=== PATIENT | male | born 1985 | race Caucasian/White ===

== ENCOUNTER 2024-12-31 11:34 | Day surgery (SDC) | payer OTHER ==
--- OUTSIDE RECORDS SUMMARY | 2024-12-31 11:51 | XMS REPORT | Continuity of Care Document ---
Author Name Unknown Address [address] [place] [address] [facility] thconnect Address [address] [place] [address] Care Team Providers Care Aeronautical Project Engineer Name Role Phone SHAYNA STONE Attending Clinician Unavailable Shade Coffman Attending Clinician Unavailable Blanco Jara Attending Clinician Unavailable Blanco Jara Admitting Clinician Unavailable Physician, No Primary or Family Admitting Clinic laura Unavailable Payers Payer Name Policy Type Policy Number Effective Date Expirati on Date Source [facility] M[facility]ALES [id number] 2021 00:00:00 Allergies, Adverse Reactions, Alerts Allergy Name Allergy Type Status Severity Reaction(s) Onset Date Inactive Date Treating Clinician Comments Source No Known Allergie s DA Active U 06-16 00:00: 00 [facility] No Known Allergie s DA Active U 06-16 00:00: 00 [facility] No Known Allergie s DA Active U 02-03 00:00: 00 [facility] No Known Allergie s DA Active U 02-03 00:00: 00 [facility] Procedures Procedure Date / Time Performed Performing Clinicia n Source [id number] 2021-06-19 00:00:00 [facility] [place] [id number] 2021-06-19 00:00:00 [facility] [place] [id number] 2020-02-11 00:00:00 MANRA.07 [facility] Encounters Start Date/Time End Date/Time Encounter Type Admission Type Attending Clinicians Care Facility Care Department Encounter ID Source 2022-04-04 01:04:00 Outpatient SHAYNA STONE [facility] [id number] [facility] 2020-12-05 08:00:00 Inpatient Shade Coffman [facility] [id number] [facility] 2020-02-11 08:00:00 Inpatient Shade Coffman [facility] [id number] [facility] 2021-06-19 11:32:00 2021-06-20 17:02:00 Inpatient Blanco Kaplan [facility].01 [id number] [facility] 2021-06-16 17:17:00 2021-06-16 17:17:00 Outpatient Shade Coffman [facility] [id number] 23 [facility] 2020-02-04 15:12:00 2020-02-04 15:12:00 Outpatient Shade Coffman [facility] [id number] 25 [facility] are [facility] Results Test Description Test Time Test Comments Results Result Co mments Source CBC W/AUTO [id number] 06:15:00* Test Item Value Reference Range Interpretation Comme nts WHITE BLOOD CELL (test code = WBC) 11.7 K/mm3 3.5-11.0 H RED BLOOD CELL (test code = RBC) 4.28 M/mm3 4.70-6.10 L HEMOGLOBIN (test code = HGB) 13.0 G/DL 12.3-15.9 N HEMATOCRIT (test code = HCT) 39.1 % 35.8-46.7 N MEAN CELL VOLUME (test code = MCV) 91.4 Fl 86.3-98.9 N MEAN CELL HGB (test code = MCH) 30.4 pg 28.9-34.4 N MEAN CELL HGB CONCETRATION (test code = MCHC) 33.2 G/DL 32.1-34.5 N RED CELL DISTRIBUTION WIDTH (test code = RDW) 13.9 SD 11.5-14.5 N PLATELET COUNT (test code = PLT) 228 K/mm3 150-450 N MEAN PLATELET VOLUME (test c ode = MPV) 9.70 fL 7.0-9.6 H NEUTROPHIL % (test code = NT%) 71.7 % 40-76 N IMMATURE GRANULOCYTE % (test code = IG%) 0.6 % 0.0-5.0 N LYMPHOCYTE % (test code = LY%) 18.9 % 20.5-51.1 L MONOCYTE % (test code = MO%) 8.2 % 1.7-9.3 N EOSINOPHIL % (test code = EO%) 0.3 % 0.0-6.0 N BASOPHIL % (test code = BA%) 0.3 % 0.0-2.0 N NUCLEATED RBC % (test code = NRBC%) 0.0 /100WBC% 0.0-1.0 N NEUTROPHIL # (test code = NT#) 8.4 K/mm3 1.8-7.6 H IMMATURE GRANULOCYTE # (test code = IG#) 0.07 x10 3/uL 0.00-0.03 H LYMPHOCYTE # (test code = LY#) 2.2 K/mm3 0.6-3.0 N MONOCYTE # (test code = MO#) 1.0 K/mm3 0.2-1.5 N EOSINOPHIL # (test code = EO#) 0.0 K/mm3 0.0-0.4 N BASOPHIL # (test code = BA#) 0.0 K/mm3 0.0-0.2 N NUCLEATED RBC # (test code = NRBC#) 0.0 K/mm3 0.00-0.01 N MANUAL DIFF REQUIRED (test c ode = MDIFF) NO DIFF/SCN CRITERIA - XR KNEE 1 OR 2 V [id number] 12:26:00 [facility] 1985 Sex: M Name:RAN ENGLISH JR [facility] : 1985 Age/S: 36 / M [address] Unit #: [id number] Loc: [place] [id number] Phys: Shade Coffman MD Acct: [id number] Dis Date: Status: ADM IN PHONE #: [phone] Exam Date: 06/19/20211700 FAX #: Reason: postop EXAMS: CPT: [id number] XR KNEE 1 [place] 2V [place] [address] Fluoro Time: DAP (Gy m2): Air Kerma (mGy): Intraoperative fluoroscopic assistance was provided for LEFT KNEE HARDWARE REMOVAL. Radiologic interpretation not rendered. Total of 0.9 secondsfluoroscopy time utilized, 0.1 mGy. LOCATION: S17 at 1226 Reported and signed by: Kenrick Mauricio M.D. CC: Shade Coffman MD PAGE1 Signed Report Name: RAN ENGLISH JR [facility] : 1985 Age/S: 36 / M [id number] [place] [address] Unit #: [id number] Loc: [place] [address] Phys: Shade Coffman MD Acct: [id number] Dis Date: Status: ADM IN PHONE #: [phone] Exam Date: 06/19/2021 170 FAX #: Reason: postop EXAMS: CPT: [id number] XR KNEE 1 OR 2 [place] [address] Fluoro Time: DAP (Gy m2): Air Kerma (mGy): <Continued> Technologist: RT Adore(R)(CT) Trnscb Date/Time: 06/19/2021 (1226) [email or web address] Orig Print D/T: S: 06/19/2021 (8796) PAGE 2 Signed Report- XR FLUOROSCOPY 0-60 MIN 2021-06-19 12:26:00 [facility] : 1985 Sex: M Name: RAN ENGLISH JR [facility] : 1985 Age/S: 36 / M [address] Unit #: [id number] Loc: [place] [address] Phys: Shade Coffman MD Acct: [id number] Dis Date: Status: ADM IN PHONE #: [phone] Exam Date: 06/19/2021 1040 FAX #: Reason: HARDWARE REMOVAL EXAMS: CPT: [id number] XR FLUOROSCOPY 0-60 MIN 62893 Fluoro Time: 1 SEC DAP (Gy m2): Air Kerma (mGy): Intraoperative fluoroscopic assistance was provided for LEFT KNEE HARDWARE REMOVAL. Radiologic interpretation not rendered. Total of 0.9 seconds fluoroscopy time utilized, 0.1 mGy. LOCATION: S17 at 1226 Reported and signed by: Kenrick Mauricio M.D. CC: Luis Coffman MD PAGE 1 Signed Report Name: RAN ENGLISH JR [facility] : 1985 Age/S: 36 / M [address] Unit #: [id number] Loc: [place] [address] Phys: Shade Coffman MD Acct: [id number] Dis Date: Status: ADM IN PHONE #: [phone] Exam Date: 06/19/2021 1040 FAX #: Reason: HARDWARE REMOVAL EXAMS: CPT: [id number] XR FLUOROSCOPY 0-60 MIN 07337 Fluoro Time: 1 SEC DAP (Gy m2): Air Kerma (mGy): <Continued> Technologist: Aileen Villasenor, RT(R) Trnscb Date/Time: 06/19/2021 (8491) [email or web address] Orig Print D/T: S: 06/19/2021 (7495) PAGE 2 Signed ReportSED RATE [id number] 10:48:00* Test Item Value Reference Range Interpretation Comme nts SED RATE ERGREN (test co de = SEDW) 4 mm/hr 0-15 N SED [id number] 10:48:00* Test Item Value Reference Range Interpretation Comme nts SED RATE (test code = SEDW) 4 mm/hr 0-15 CBC W/AUTO [id number] 19:58:00* Test Item Value Reference Range Interpretation Comme nts WHITE BLOOD CELL (test code = WBC) 10.2 K/mm3 3.5-11.0 N RED BLOOD CELL (test code = RBC) 5.67 M/mm3 4.70-6.10 N HEMOGLOBIN (test code = HGB) 17.0 G/DL 12.3-15.9 H HEMATOCRIT (test code = HCT) 51.9 % 35.8-46.7 H MEAN CELL VOLUME (test code = MCV) 91.5 Fl 86.3-98.9 N MEAN CELL HGB (test code = MCH) 30.0 pg 28.9-34.4 N MEAN CELL HGB CONCETRATION (test code = MCHC) 32.8 G/DL 32.1-34.5 N RED CELL DISTRIBUTION WIDTH (test code = RDW) 14.1 SD 11.5-14.5 N PLATELET COUNT (test code = PLT) 299 K/mm3 150-450 N MEAN PLATELET VOLUME (test c ode = MPV) 9.60 fL 7.0-9.6 N NEUTROPHIL % (test code = NT%) 62.0 % 40-76 N IMMATURE GRANULOCYTE % (test code = IG%) 0.6 % 0.0-5.0 N LYMPHOCYTE % (test code = LY%) 26.9 % 20.5-51.1 N MONOCYTE % (test code = MO%) 7.6 % 1.7-9.3 N EOSINOPHIL % (test code = EO%) 1.9 % 0.0-6.0 N BASOPHIL % (test code = BA%) 1.0 % 0.0-2.0 N NUCLEATED RBC % (test code = NRBC%) 0.0 /100WBC% 0.0-1.0 N NEUTROPHIL # (test code = NT#) 6.4 K/mm3 1.8-7.6 N IMMATURE GRANULOCYTE # (test code = IG#) 0.06 x10 3/uL 0.00-0.03 H LYMPHOCYTE # (test code = LY#) 2.8 K/mm3 0.6-3.0 N MONOCYTE # (test code = MO#) 0.8 K/mm3 0.2-1.5 N EOSINOPHIL # (test code = EO#) 0.2 K/mm3 0.0-0.4 N BASOPHIL # (test code = BA#) 0.1 K/mm3 0.0-0.2 N NUCLEATED RBC # (test code = NRBC#) 0.0 K/mm3 0.00-0.01 N MANUAL DIFF REQUIRED (test c ode = MDIFF) NO DIFF/SCN CRITERIA SED [id number] 19:58:00* Test Item Value Reference Range Interpretation Comme nts SED RATE (test code = SEDW) 8 mm/hr 0-15 SED RATE [id number] 19:57:00* Test Item Value Reference Range Interpretation Comme nts SED RATE [facility] (test co de = SEDW) 8 mm/hr 0-15 N COVID 19 INHOUSE [id number] 18:28:00* Test Item Value Reference Range Interpretation Comme nts COVID 19 INHOUSE AG (test code = [id number]) NEGATIVE Negative Per stage settings painter , negative results should be treated aspresumptive and, if inconsistent with clinical signs andsymptoms or necessary for patient management, should betested with an alternative molecular assay. Negative resultsdo not preclude SARS-CoV-2 infection and should not be usedas the sole basis for patient management decisions. Negative results should be considered in the context of apatient's recent exposures, history, presence of clinicalsigns and symptoms consistent with COVID-19. BASIC METABOLIC [id number] 17:35:00* Test Item Value Reference Range Interpretation Comme nts SODIUM (test code = NA) 137 mmol/L 134-147 N POTASSIUM (test code = K) 3.8 mmol/L 3.4-5.0 N CHLORIDE (test code = CL) 104 mmol/L 100-108 N CARBON DIOXIDE (test code = CO2) 29 mmol/L 21-32 N ANION GAP (test code = GAP) 4.0 GAP calc 4.0-15.0 N GLUCOSE (test code = GLU) 88 MG/DL 70-110 N BLOOD UREA NITROGEN (test code = BUN) 15 MG/DL 7-18 N GLOMERULAR FILTRATION RATE (test code = GFR) >=60 max estimate estGFR >60 CREATININE (test code = CREAT) 0.8 MG/DL 0.8-1.3 N CALCIUM (test code = CA) 9.2 MG/DL 8.5-10.1 N C REACTIVE [id number] 17:35:00* Test Item Value Reference Range Interpretation Comme [facility] C REACTIVE PROTEIN (test cod e = CRP) 1.910 MG/DL 0.000-0.3 H PROTHROMBIN [id number] 17:26:00* Test Item Value Reference [facility] (test code = PTP) 11.3 SECONDS 9.3-12.9 N INTERNATIONAL NORMAL RATIO (test code = INR) 1.01 INR Unit 0.8-1.2 N TARGET INR BY INDICATION Indication INR1. Prophylaxis of venous thrombosis 2.0 - 3.0 (orthopedic surgery), Prophylaxis of venous thrombosis (other than high-risk surgery), Treatment of Deep Vein Thrombosis/Pulmonary Embolism, Prevention of systemic embolism - Tissue heart valves, Acute Myocardial Infarction (to prevent systemic embolism), Valvular heart disease, Acute Myocardial Infarction (to prevent systemic embolism), Valvular heart disease, Atrial Fibrillation, Bileaflet mechanical valve in aortic position.2. Mechanical prosthetic valves (high risk), 2.5 - 3.5 Presence of Lupus Anticoagulant or Antiphospholipid Antibodies, Prevention of systemic embolism - Acute Myocardial Infarction (to prevent recurrent infarct). THROMBOPLASTIN TIME [id number] 17:26:00* Test Item Value Reference Range Interpretation Comme [facility] THROMBOPLASTIN TIME PARTIAL (test code = PTT) 41.5 SECONDS 26-35 H CBC W/AUTO [id number] 17:22:00* Test Item Value Reference Range Interpretation Comme nts WHITE BLOOD CELL (test code = WBC) 10.2 K/mm3 3.5-11.0 N RED BLOOD CELL (test code = RBC) 5.67 M/mm3 4.70-6.10 N HEMOGLOBIN (test code = HGB) 17.0 G/DL 12.3-15.9 H HEMATOCRIT (test code = HCT) 51.9 % 35.8-46.7 H MEAN CELL VOLUME (test code = MCV) 91.5 Fl 86.3-98.9 N MEAN CELL HGB (test code = MCH) 30.0 pg 28.9-34.4 N MEAN CELL HGB CONCETRATION (test code = MCHC) 32.8 G/DL 32.1-34.5 N RED CELL DISTRIBUTION WIDTH (test code = RDW) 14.1 SD 11.5-14.5 N PLATELET COUNT (test code = PLT) 299 K/mm3 150-450 N MEAN PLATELET VOLUME (test c ode = MPV) 9.60 fL 7.0-9.6 N NEUTROPHIL % (test code = NT%) 62.0 % 40-76 N IMMATURE GRANULOCYTE % (test code = IG%) 0.6 % 0.0-5.0 N LYMPHOCYTE % (test code = LY%) 26.9 % 20.5-51.1 N MONOCYTE % (test code = MO%) 7.6 % 1.7-9.3 N EOSINOPHIL % (test code = EO%) 1.9 % 0.0-6.0 N BASOPHIL % (test code = BA%) 1.0 % 0.0-2.0 N NUCLEATED RBC % (test code = NRBC%) 0.0 /100WBC% 0.0-1.0 N NEUTROPHIL # (test code = NT#) 6.4 K/mm3 1.8-7.6 N IMMATURE GRANULOCYTE # (test code = IG#) 0.06 x10 3/uL 0.00-0.03 H LYMPHOCYTE # (test code = LY#) 2.8 K/mm3 0.6-3.0 N MONOCYTE # (test code = MO#) 0.8 K/mm3 0.2-1.5 N EOSINOPHIL # (test code = EO#) 0.2 K/mm3 0.0-0.4 N BASOPHIL # (test code = BA#) 0.1 K/mm3 0.0-0.2 N NUCLEATED RBC # (test code = NRBC#) 0.0 K/mm3 0.00-0.01 N MANUAL DIFF REQUIRED (test c ode = MDIFF) NO DIFF/SCN CRITERIA SED [id number] 17:22:00* Test Item Value Reference Range Interpretation Comme nts SED RATE (test code = SEDW) mm/hr 0-15 - XR CHEST 1 [id number] 16:53:00 [facility] 1985 Sex: M Name:RAN ENGLISH JR [facility] : 1985 Age/S: 36 / M [address] Unit #: [id number] Loc: [place] [address] Phys: Jackie Wilks MD Acct: [id number] Dis Date: Status: PRE [facility] PHONE #: [phone] Exam Date: 06/16/2021 1642 FAX #: Reason: PREOP EXAMS: CPT: [id number] XR CHEST 1 V 20325 Fluoro Time: DAP (Gy m2): Air Kerma (mGy): EXAM: Portable chest x-ray, one view INDICATION: PREOP A DMITTING DIAGNOSIS: Fracture left distal femur, left knee osteoarthritis LOCATION CODE: C3 COMPARISON: None TECHNIQUE: Single Portable AP upright view of the chest DISCUSSION: Catheter and Tubes: none Lung: The lungs are clear. No pneumothorax No Pleural effusion Mediastinum: Unremarkable Cardiac:Unremarkable Osseous structures are within normal limits. IMPRESSION: 1. Unremarkable chest x-ray. at 6653 Reported and signed by: Yvon Gonzalez M.D. CC: Shade Coffman MD; Jackie Wilks MD PAGE 1 Signed Report Name: RAN ENGLISH JR [facility] : 1985 Age/S: 36 / M [address] Unit #: [id number] Loc: [place] [address] Phys: Jackie Wilks MD Acct: [id number] Dis Date: Status: PRE [facility] PHONE #: [phone] Exam Date: 06/16/2021 1642 FAX #: Reason: PREOP EXAMS: CPT: [id number] XR CHEST 1 V 21259 Fluoro Time: DAP (Gy m2): Air Kerma (mGy): <Continued> Technologist: Jakub Bartlett, RT(R)(CT) TrnscbDate/Time: 06/16/2021 (1652) [email or web address] Orig Print D/T: S: 06/16/2021 (4575) PAGE 2 Signed Report COMPREHENSIVE METABOLIC [id number] 06:15:00* Test Item Value Reference Range Interpretation Comme nts SODIUM (test code = NA) 135 MMOL/L 136-143 L POTASSIUM (test code = K) 4.1 MMOL/L 3.5-5.1 N CHLORIDE (test code = CL) 97 MMOL/L 98-107 L CARBON DIOXIDE (test code = CO2) 27 mmol/L 24-31 N GLUCOSE (test code = GLU) 86 mg/dL 70-104 N BLOOD UREA NITROGEN (test code = BUN) 10.7 MG/DL 7.0-21.0 N GLOMERULAR FILTRATION RATE (test code = GFR) >=60 max estimate >60 The estimated glomerular filtration rate is computed usingpatient race, age (>18), sex, and serum creatinine. If anyof the needed data elements are missing the Laboratory cannot compute an estimation of the glomerular filtration rate. CREATININE (test code = CREAT) 0.6 mg/dL 0.8-1.5 L TOTAL PROTEIN (test code = PROT) 7.5 g/dL 6.3-8.3 N ALBUMIN (test code = ALB) 4.0 G/DL 3.5-5.0 N CALCIUM (test code = CA) 9.6 mg/dL 8.8-10.2 BILIRUBIN TOTAL (test code = BILT) 1.2 mg/dL 0.2-1.0 H SGOT/AST (test code = AST) 11 IU/L 10-34 N SGPT/ALT (test code = ALT) 16 U/L 10-44 N ALKALINE PHOSPHATASE (test code = ALKP) 70 U/L 45-120 N CBC W/AUTO [id number] 06:03:00* Test Item Value Reference Range Interpretation Comme nts WHITE BLOOD CELL (test code = WBC) 8.4 x10 3/uL 4.8-10.8 N RED BLOOD CELL (test code = RBC) 4.67 x10 6/uL 4.70-6.10 L HEMOGLOBIN (test code = HGB) 13.7 g/dL 14.5-20 L HEMATOCRIT (test code = HCT) 42.7 % 42.0-52.0 N MEAN CELL VOLUME (test code = MCV) 91.4 fL 80.0-94.0 N MEAN CELL HGB (test code = MCH) 29.3 pg 27-31 N MEAN CELL HGB CONCENTRATION (test code = MCHC) 32.1 G/DL 33-36.5 L RED CELL DISTRIBUTION WIDTH (test code = RDW) 13.2 % 12.9-16.9 N PLATELET COUNT (test code = PLT) 213 150-440 N MEAN PLATELET VOLUME (test c ode = MPV) 9.7 fL 8.9-12.4 N NEUTROPHIL % (test code = NT%) 73.7 % 42.2-75.2 N LYMPHOCYTE % (test code = LY%) 15.0 % 20.5-51.1 L MONOCYTE % (test code = MO%) 7.5 % 1.7-9.3 N EOSINOPHIL % (test code = EO%) 2.6 % 0.0-7.0 N BASOPHIL % (test code = BA%) 0.7 % 0-2.5 N NEUTROPHIL # (test code = NT#) 6.21 x10 3/uL 1.80-7.70 N LYMPHOCYTE # (test code = LY#) 1.26 x10 3/uL 1.00-4.80 N MONOCYTE # (test code = MO#) 0.63 x10 3/uL 0.00-0.80 N EOSINOPHIL # (test code = EO#) 0.22 x10 3/uL 0.00-0.45 N BASOPHIL # (test code = BA#) 0.06 x10 3/uL 0.0-0.20 N COMPREHENSIVE METABOLIC [id number] 05:18:00* Test Item Value Reference Range Interpretation Comme nts SODIUM (test code = NA) 138 MMOL/L 136-143 N POTASSIUM (test code = K) 4.1 MMOL/L 3.5-5.1 N CHLORIDE (test code = CL) 101 MMOL/L 98-107 N CARBON DIOXIDE (test code = CO2) 24 mmol/L 24-31 N GLUCOSE (test code = GLU) 84 mg/dL 70-104 N BLOOD UREA NITROGEN (test code = BUN) 12.8 MG/DL 7.0-21.0 N GLOMERULAR FILTRATION RATE (test code = GFR) >=60 max estimate >60 The estimated glomerular filtration rate is computed usingpatient race, age (>18), sex, and serum creatinine. If anyof the needed data elements are missing the Laboratory cannot compute an estimation of the glomerular filtration rate. CREATININE (test code = CREAT) 0.6 mg/dL 0.8-1.5 L TOTAL PROTEIN (test code = PROT) 5.9 g/dL 6.3-8.3 L ALBUMIN (test code = ALB) 3.5 G/DL 3.5-5.0 N CALCIUM (test code = CA) 8.6 mg/dL 8.8-10.2 L BILIRUBIN TOTAL (test code = BILT) 1.5 mg/dL 0.2-1.0 H SGOT/AST (test code = AST) 13 IU/L 10-34 N SGPT/ALT (test code = ALT) 18 U/L 10-44 N ALKALINE PHOSPHATASE (test code = ALKP) 64 U/L 45-120 N CBC W/AUTO [id number] 04:59:00* Test Item Value Reference Range Interpretation Comme nts WHITE BLOOD CELL (test code = WBC) 10.0 x10 3/uL 4.8-10.8 N RED BLOOD CELL (test code = RBC) 4.25 x10 6/uL 4.70-6.10 L HEMOGLOBIN (test code = HGB) 12.8 g/dL 14.5-20 L HEMATOCRIT (test code = HCT) 38.8 % 42.0-52.0 L MEAN CELL VOLUME (test code = MCV) 91.3 fL 80.0-94.0 N MEAN CELL HGB (test code = MCH) 30.1 pg 27-31 N MEAN CELL HGB CONCENTRATION (test code = MCHC) 33.0 G/DL 33-36.5 N RED CELL DISTRIBUTION WIDTH (test code = RDW) 13.4 % 12.9-16.9 N PLATELET COUNT (test code = PLT) 224 150-440 N MEAN PLATELET VOLUME (test c ode = MPV) 9.6 fL 8.9-12.4 N NEUTROPHIL % (test code = NT%) 65.6 % 42.2-75.2 N LYMPHOCYTE % (test code = LY%) 22.2 % 20.5-51.1 N MONOCYTE % (test code = MO%) 9.3 % 1.7-9.3 N EOSINOPHIL % (test code = EO%) 1.8 % 0.0-7.0 N BASOPHIL % (test code = BA%) 0.6 % 0-2.5 N NEUTROPHIL # (test code = NT#) 6.55 x10 3/uL 1.80-7.70 N LYMPHOCYTE # (test code = LY#) 2.22 x10 3/uL 1.00-4.80 N MONOCYTE # (test code = MO#) 0.93 x10 3/uL 0.00-0.80 H EOSINOPHIL # (test code = EO#) 0.18 x10 3/uL 0.00-0.45 N BASOPHIL # (test code = BA#) 0.06 x10 3/uL 0.0-0.20 N - XR FLUOROSCOPY 0-60 [id number] 16:17:00Patient Name: AMADORRAN JR Unit No: [id number] EXAMS: CPT CODE: [id number] XR FLUOROSCOPY 0-60 MIN 81780 Fluoroscopy 2 views intraoperative 02/11/2020 4:16 PM CLINICAL HISTORY: Instrument localization COMPARISON: None available LOCATION: W1 IMPRESSION: Please correlate imaging report findings with the procedure note prepared by Dr. Coffman, as an intra-procedure imaging consultation was not requested. Reported fluoroscopy time: 66.7 seconds. at 1617 Reported and signed by: ARACELIS PATEL M.D. CC: Kristian Hawkins MD Technologist: LUIS FLOYD RT(R) Fluoro Time: DAP (Gy m2): Air Kerma (mGy): Trscr Dt/Tm: 02/11/2020 (1617) by:[email or web address] Printed Date/Time: 02/11/2020 (1620) [facility]: Kristian Villagomez MD [address] DOB: 1985 Age: 35 Sex: [place] [address] Loc: P.0728 1 Exam Date: 02/11/2020 Status: ADM IN PH: FAX: PAGE 1 Signed Report- XR KNEE 1 OR 2 V [id number] 13:00:00Patient Name: RAN ENGLISH Unit No: [id number] EXAMS: CPT CODE: [id number] XR KNEE 1 [place] 2V [place] [address] Left knee History: postop Comparison: None at this time Location: R16 2 views of the left knee are submitted. IMPRESSION: The joint space is unremarkable. There is soft tissue swelling. Pos tsurgical changes are identified. There could possibly be a fracture in the region of the postsurgical changes, which is not well demonstrated on these 2 views. at 1300 Reported and signed by: KENRICK LOREDO M.D. CC: Shade Coffman MD Technologist: LUIS FLOYD RT(R) Fluoro Time: DAP (Gy m2): Air Kerma (mGy): Trscr Dt/Tm: 02/11/2020 (1300) by:NilePMT Printed Date/Time: 02/11/2020 (1303) Name: RAN ENGLISH [facility] Phys: Shade Vela MD [address] DOB: 1985 Age: 35 Sex: [place] [address] Loc: P.SHA 02 Exam Date: 02/11/2020 Status: ADM IN PH: FAX: PAGE 1 Signed ReportBASIC METABOLIC [id number] 13:44:00* Test Item Value Reference Range Interpretation Comme nts SODIUM (test code = NA) 135 MMOL/L 136-143 L POTASSIUM (test code = K) 4.5 MMOL/L 3.5-5.1 N CHLORIDE (test code = CL) 98 MMOL/L 98-107 N CARBON DIOXIDE (test code = CO2) 24 mmol/L 24-31 N GLUCOSE (test code = GLU) 90 mg/dL 70-104 N BLOOD UREA NITROGEN (test code = BUN) 20.6 MG/DL 7.0-21.0 N GLOMERULAR FILTRATION RATE (test code = GFR) >=60 max estimate >60 The estimated glomerular filtration rate is computed usingpatient race, age (>18), sex, and serum creatinine. If anyof the needed data elements are missing the Laboratory cannot compute an estimation of the glomerular filtration rate. CREATININE (test code = CREAT) 0.7 mg/dL 0.8-1.5 L CALCIUM (test code = CA) 9.4 mg/dL 8.8-10.2 N C REACTIVE [id number] 13:44:00* Test Item Value Reference Range Interpretation Comme nts C REACTIVE PROTEIN (test code = CRP) 5.1 mg/L 0.0-5.0 H CBC W/AUTO [id number] 13:41:00* Test Item Value Reference Range Interpretation Comme nts WHITE BLOOD CELL (test code = WBC) 7.1 x10 3/uL 4.8-10.8 N RED BLOOD CELL (test code = RBC) 4.82 x10 6/uL 4.70-6.10 N HEMOGLOBIN (test code = HGB) 14.5 g/dL 14.5-20 N HEMATOCRIT (test code = HCT) 43.6 % 42.0-52.0 N MEAN CELL VOLUME (test code = MCV) 90.5 fL 80.0-94.0 N MEAN CELL HGB (test code = MCH) 30.1 pg 27-31 N MEAN CELL HGB CONCENTRATION (test code = MCHC) 33.3 G/DL 33-36.5 N RED CELL DISTRIBUTION WIDTH (test code = RDW) 13.1 % 12.9-16.9 N PLATELET COUNT (test code = PLT) 363 150-440 N MEAN PLATELET VOLUME (test c ode = MPV) 9.3 fL 8.9-12.4 N NEUTROPHIL % (test code = NT%) 58.7 % 42.2-75.2 N LYMPHOCYTE % (test code = LY%) 29.3 % 20.5-51.1 N MONOCYTE % (test code = MO%) 7.2 % 1.7-9.3 N EOSINOPHIL % (test code = EO%) 3.4 % 0.0-7.0 N BASOPHIL % (test code = BA%) 1.0 % 0-2.5 N NEUTROPHIL # (test code = NT#) 4.18 x10 3/uL 1.80-7.70 N LYMPHOCYTE # (test code = LY#) 2.08 x10 3/uL 1.00-4.80 N MONOCYTE # (test code = MO#) 0.51 x10 3/uL 0.00-0.80 N EOSINOPHIL # (test code = EO#) 0.24 x10 3/uL 0.00-0.45 N BASOPHIL # (test code = BA#) 0.07 x10 3/uL 0.0-0.20 N WINTROBE SED [id number] 13:41:00* Test Item Value Reference Range Interpretation Comme nts WINTROBE SED RATE (test code = SEDWI) 21 mm/HR 0-10 H UA RFLX MICR CULT IF [id number] 13:15:00* Test Item Value Reference Range Interpretation Comme nts UA COLOR (test code = COLU) YELLOW DISCRIPT YELLOW UA APPEARANCE (test code = APPU) CLEAR DISCRIPT CLEAR UA GLUCOSE DIPSTICK (test code = DGLUU) NEGATIVE mg/dL NEGATIVE UA BILIRUBIN DIPSTICK (test code = BILU) NEGATIVE NEGATIVE UA KETONE DIPSTICK (test cod e = KETU) NEGATIVE mg/dL NEGATIVE UA SPECIFIC GRAVITY (test code = SGU) 1.020 1.005-1.030 UA BLOOD DIPSTICK (test code = JUANY) NEGATIVE NEGATIVE UA PH DIPSTICK (test code = TY) 6.0 5.0-9.0 UA PROTEIN DIPSTICK (test code = PROU) NEGATIVE mg/dL NEGATIVE UA UROBILINOGEN DIPSTICK (test code = URO) 0.2 mg/dL 0.2-1.0 UA NITRITE DIPSTICK (test code = DENNIS) NEGATIVE NEGATIVE UA LEUKOCYTE ESTERASE DIPSTICK (test code = LEUU) NEGATIVE NEGATIVE Indication for culture: Dysuria/FrequencySpec Comments: ROUTINE URINEVITAMIN D [id number] 12:49:00* Test Item Value Reference Range Interpretation Comme nts VITAMIN D 25-HYDROXY (test code = VITD25) 16.38 NG/ML 30-100 L INTERPRETATIVE DATA:Suggester guidelines for Vitamin D Levels in serum<10.0 ng/mL Severely Deficient<30.0 ng/mL Ehcbmnlrr86.0 - 100.0 ng/mL Sufficient>100.0 ng/mL Possible Toxicity PROTHROMBIN [id number] 12:03:00* Test Item Value Reference Range Interpretation Comme nts PROTHROMBIN TIME PATIENT (test code = PTP) 12.2 SECONDS 10.3-12.9 N INTERNATIONAL NORMAL RATIO (test code = INR) 1.05 INR UNIT 0.9-1.11 N The INR is usefu l only for monitoring anticoagulant therapy.It may be unreliable in the initial phase of antigoagulationand in unstable patients. Indication for Anticoagulation Recommended INR 1. Prevention of venous thomboembolism 2.0-3.0in high-risk patients; treatment of venousthrombosis and pulmonary embolism aftera course of heparin; prevention of systemicembolism in a variety of conditions, including atrial fibrillation and prothetic tissue heart valves, 2. Prosthetic mechanical heart valves; 2.5-3.5recurrent systemic embolism. THROMBOPLASTIN TIME [id number] 12:03:00* Test Item Value Reference Range Interpretation Comme nts THROMBOPLASTIN TIME PARTIAL (test code = PTT) 38.1 SECONDS 26.0-35.9 H INTERPRETATIVE DATA:Therapeutic range: Unfractionated heparin:47 - 71 seconds Argatroban:1.5 to 3 times the baseline PTT UA RFLX MICR CULT IF [id number] 11:59:00* Test Item Value Reference Range Interpretation Comme nts UA COLOR (test code = COLU) YELLOW DISCRIPT YELLOW UA APPEARANCE (test code = APPU) CLEAR DISCRIPT CLEAR UA GLUCOSE DIPSTICK (test code = DGLUU) NEGATIVE mg/dL NEGATIVE UA BILIRUBIN DIPSTICK (test code = BILU) NEGATIVE NEGATIVE UA KETONE DIPSTICK (test cod e = KETU) NEGATIVE mg/dL NEGATIVE UA SPECIFIC GRAVITY (test code = SGU) 1.020 1.005-1.030 UA BLOOD DIPSTICK (test code = JUANY) NEGATIVE NEGATIVE UA PH DIPSTICK (test code = TY) 6.0 5.0-9.0 UA PROTEIN DIPSTICK (test code = PROU) NEGATIVE mg/dL NEGATIVE UA UROBILINOGEN DIPSTICK (test code = URO) 0.2 mg/dL 0.2-1.0 UA NITRITE DIPSTICK (test code = DENNIS) NEGATIVE NEGATIVE UA LEUKOCYTE ESTERASE DIPSTICK (test code = LEUU) NEGATIVE NEGATIVE UA WBC (test code = WBCU) #WBC/HPF 0-2 UA RBC (test code = RBCU) #RBC/HPF 0-2 UA BACTERIA (test code = BACU) /HPF NONE-TRACE UA SQUAMOUS CELLS (test code = SQU) /LPF NONE-TRACE Indication for culture: Dysuria/FrequencySpec Comments: ROUTINE URINECBC W/AUTO [id number] 11:58:00* Test Item Value Reference Range Interpretation Comme nts WHITE BLOOD CELL (test code = WBC) 7.1 x10 3/uL 4.8-10.8 N RED BLOOD CELL (test code = RBC) 4.82 x10 6/uL 4.70-6.10 N HEMOGLOBIN (test code = HGB) 14.5 g/dL 14.5-20 N HEMATOCRIT (test code = HCT) 43.6 % 42.0-52.0 N MEAN CELL VOLUME (test code = MCV) 90.5 fL 80.0-94.0 N MEAN CELL HGB (test code = MCH) 30.1 pg 27-31 N MEAN CELL HGB CONCENTRATION (test code = MCHC) 33.3 G/DL 33-36.5 N RED CELL DISTRIBUTION WIDTH (test code = RDW) 13.1 % 12.9-16.9 N PLATELET COUNT (test code = PLT) 363 150-440 N MEAN PLATELET VOLUME (test c ode = MPV) 9.3 fL 8.9-12.4 N NEUTROPHIL % (test code = NT%) 58.7 % 42.2-75.2 N LYMPHOCYTE % (test code = LY%) 29.3 % 20.5-51.1 N MONOCYTE % (test code = MO%) 7.2 % 1.7-9.3 N EOSINOPHIL % (test code = EO%) 3.4 % 0.0-7.0 N BASOPHIL % (test code = BA%) 1.0 % 0-2.5 N NEUTROPHIL # (test code = NT#) 4.18 x10 3/uL 1.80-7.70 N LYMPHOCYTE # (test code = LY#) 2.08 x10 3/uL 1.00-4.80 N MONOCYTE # (test code = MO#) 0.51 x10 3/uL 0.00-0.80 N EOSINOPHIL # (test code = EO#) 0.24 x10 3/uL 0.00-0.45 N BASOPHIL # (test code = BA#) 0.07 x10 3/uL 0.0-0.20 N WINTROBE SED [id number] 11:58:00* Test Item Value Reference Range Interpretation Comme nts WINTROBE SED RATE (test code = SEDWI) mm/HR 0-10 - XR CHEST 2 [id number] 11:56:00Patient Name: RAN ENGLISH JR Unit No: [id number] EXAMS: CPT CODE: [id number] XR CHEST 2 V 36817 CHEST, 2 VIEWS DICTATION LOCATION A1 HISTORY: Preoperative evaluation. 2 views of the chest at 11:49 AM are compared to a prior exam from September 10, 2014. FINDINGS: The lungs are clear of acuteinfiltrate or mass. The heart and pulmonary vasculature are within normal limits. No pleural effusion is present. No free air is identified under the diaphragm. No acute skeletal abnormality is seen. IMPRESSION: No acute thoracic abnormality. at 1156 Reported and signed by: Abimael Bermeo Jr, MD CC: Shade Coffman MD Technologist: Danisha Ng Time: DAP (Gy m2): Air Kerma (mGy): Trscr Dt/Tm: 02/04/2020 (5106) by:Janette Printed Date/Time: 02/04/2020 (6216) Name: RAN ENGLISH JR [facility] Phys:Shade Vela MD [address] : 1985 Age: 34 Sex: [place] [address] Loc: P.SRG Exam Date: 02/04/2020 Status: PRE [facility] PH: FAX: PAGE 1 Signed Report Notes Date/Time Note Provider Source 2021-06-20 15:51:00 [facility]) Orthopaedic Progress Note REPORT#:[id number] REPORT STATUS: Signed DATE:06/20/21 TIME:1551 PATIENT: RAN ENGLISH JR UNIT #: [id number] ROOM/BED: [place] [address] : [birth year] AGE: 36 SEX: M ATTEND: Blanco Jara MD ADM AUTHOR: Shade Coffman MD * ALL edits or amendments must be made on the electronic/computer document * Subjective Chief complaint: pt doing well, up today, drain 280cc, hgb 13.0 cx pending at 1554 RPT #: [id number] END OF REPORT [facility] 2021-06-20 09:04:00 [facility]) Hospitalist Progress Note REPORT#:[id number] REPORT STATUS: Signed DATE:06/20/21 TIME:09 PATIENT: RAN ENGLISH JR UNIT #: [id number] ROOM/BED: [place] [address] : [birth year] AGE: 36 SEX: M ATTEND: Blanco Jara MD ADM AUTHOR: Therese Rodríguez MD * ALL edits or amendments must be made on the electronic/computer document * Subjective Chief Complaint: l Knee pain Review of Systems Respiratory: Denies: SOB. Cardiovascular: Denies: chest pain. Objective General VS/I O: Vital Signs: Date Time Temp Pulse Resp B/P B/P Pulse O2 O2 Flow FiO2 Mean Ox Delivery Rate 06/20 0706 36.9 97 14 158/103 0.0 96 08/ 0426 36.4 96 18 154/98 116.6 95 08/ 0033 36.7 102 18 145/90 108.3 94 08/ 2040 36.8 105 18 155/86 109.1 96 08/ 1812 Nasal 2 cannula 08/ 1548 36.7 104 16 143/110 120.8 95 Room air 08/ 1451 Nasal 2 cannula 08/ 1430 95 25 161/76 95 Nasal 2 cannula / 1420 Nasal 2 cannula / 1354 106 26 166/91 95 Nasal 2 cannula / 1330 87 24 124/67 94 Nasal 2 cannula 06/19 1315 85 16 126/69 93 Nasal 2 cannula / 1300 82 15 137/70 100 Simple 10 mask 06/19 1251 Simple 10 mask 06/19 1240 75 14 163/86 98 Simple 10 mask / 1235 74 15 146/72 98 Simple 10 mask / 1230 82 20 147/72 95 Simple 10 mask / 1225 74 20 145/70 90 Simple 10 mask / 1220 72 16 149/72 96 Simple 10 mask / 1215 36.4 69 38 154/100 97 Simple 10 mask 24 hour I O ending at 0700: 06/20 0700 06/19 1900 Intake Total 180 Output Total 280 Balance -100 Intake, Oral 180 Output, 280 Drainage PATIENT WEIGHT: Weight (lb): 305 Weight (oz): 10.24 Weight (kg): 138.636 Physical Exam General appearance: alert, awake Cardiovascular: normal capillary refill, regular rate rhythm Respiratory: clear to auscultation, no distress Rectal: not indicated Extremities: no clubbing, no cyanosis, no edema, L knee in dressing s/p surgery with knee immobilizer Neuro/TAX COLLECTOR: alert, oriented X 3 Skin: dry, intact Free Text Obj Notes Free Text Obj Notes: Physical examination Patient is a sleepy but wakes up on verbal stimuli then goes back to sleep HEENT pupils equal round reactive light and accommodating normocephalic/ atraumatic skull normal oral mucosa Neck supple no JVD Chest clear bilateral entry no wheeze or crackles CVS S1-S2 no murmur rubs or gallop Abdomen soft nontender bowel sounds positive Extremities no pedal edema pulses palpable Left lower extremity under or bandage with drain TAX COLLECTOR alert oriented x1-2 moving all 4 extremities no focal deficit identified Psych examination unable to obtain reliably Diagnosis, Assessment Plan Free Text DxA P Notes Free text DxA P notes: Status post left knee arthroplasty and removal of hardware Continue postoperative care as per surgery PT OT Pain control Incentive spirometry We will start the DVT prophylaxis Follow-up with orthopedics Depression anxiety Continue with patient's home medication DVT prophylaxis with heparin code status full code possible dc after eval by PT if clear by ortho at 0907 RPT #: [id number] END OF REPORT [facility] 2021-06-19 13:05:00 [facility] Hospitalist History Physical REPORT#:[id number] REPORT STATUS: Signed DATE:06/19/21 TIME:1305 PATIENT: RAN ENGLISH JR UNIT #: [id number] ROOM/BED: [place] [address] : [birth year] AGE: 36 SEX: M ATTEND: Shade Coffman MD ADM AUTHOR: Blanco Jara MD * ALL edits or amendments must be made on the electronic/computer document * History of Present Illness HPI Chief complaint: Status post left knee arthroplasty PCP: PCP: No Primary or Family Physician HPI: This is 36-year-old gentleman who underwent scheduled left knee arthroplasty and removal of hardware under general anesthesia. At the time of evaluation patient is recovering from anesthesia wakes up occasionally answer some questions but then would go back to sleep. Patient had traumatic left femur fracture in January 2020 he had some surgery but then developed osteoarthritis and for that underwent above-mentioned surgery. Patient is unable to provide reliable review of system as he is still under the effect of anesthesia. History Past Medical Surgical Hx Additional medical history: Depression/anxiety Additional surgical history: Left knee surgery Family History Additional family history: Unable to obtain Social History Alcohol use: Alcohol use (occasional) Smoking status: Smoking status for patients 13 years old or older: Current every day smoker Date last smoked: 06/16/21 Packs per day: 0.5 Pack years: 0 Medication/Allergy-Vaccine Hx Medications: Home Medications: ESCITALOPRAM (LEXAPRO) 20 MG PO DAILY buPROPion HCL SR (WELLBUTRIN SR) 300 MG PO DAILY Allergies: Coded Allergies: No Known Allergies (06/16/21) Review of Systems Unable to obtain due to: As patient is under the effect of Physical Exam VS/I O: Vital Signs Date Temp Pulse Resp B/P B/P Mean Pulse Ox FiO2 06/19 36.4-36.6 68-82 14-38 137-163/70-100 90-100 Last Documented: Result Date Time Pulse Ox 100 06/19 1300 B/P 137/70 06/19 1300 O2 Delivery Simple mask 06/19 1300 O2 Flow Rate 10 06/19 1300 Pulse 82 / 1300 Resp 15 06/19 1300 Temp 36.4 06/19 1215 24 hour I O ending at 0700: 06/19 0700 06/18 1900 Intake Total Output Total Balance Patient 138.636 kg Weight Weight Stated/Reported Measurement Method Patient Weight and BMI Weight (kg): 138.636 BMI: 45.1 Results Findings/Data: Laboratory Tests: 06/19 807 Hematology ESR (0 - 15 mm/hr) 4 Laboratory Tests Test Result Date Time Chemistry Sodium (134 - 147 mmol/L) 137 06/16 1638 Potassium (3.4 - 5.0 mmol/L) 3.8 06/16 1638 Chloride (100 - 108 mmol/L) 104 06/16 1638 Carbon Dioxide (21 - 32 mmol/L) 29 06/16 1638 Anion Gap (4.0 - 15.0 GAP calc) 4.0 06/16 1638 BUN (7 - 18 MG/DL) 15 06/16 1638 Creatinine (0.8 - 1.3 MG/DL) 0.8 06/16 1638 Glomerular Filtr Rate (>60 estGFR) >=60 max estimate 06/16 1638 Glucose (70 - 110 MG/DL) 88 06/16 1638 Calcium (8.5 - 10.1 MG/DL) 9.2 06/16 1638 C-Reactive Protein (0.000 - 0.3 MG/DL) 1.910 H 06/16 1638 Coagulation INR (0.8 - 1.2 INR Unit) 1.01 06/16 1638 PTT (Ryan) (26 - 35 SECONDS) 41.5 H 06/16 1638 PT Patient/Control Mix (9.3 - 12.9 SECONDS) 11.3 06/16 1638 Hematology WBC (3.5 - 11.0 K/mm3) 10.2 / 1638 RBC (4.70 - 6.10 M/mm3) 5.67 / 1638 Hgb (12.3 - 15.9 G/DL) 17.0 H 06/16 1638 Hct (35.8 - 46.7 %) 51.9 H 06/16 1638 MCV (86.3 - 98.9 Fl) 91.5 / 1638 MCH (28.9 - 34.4 pg) 30.0 / 1638 MCHC (32.1 - 34.5 G/DL) 32.8 / 1638 RDW (11.5 - 14.5 SD) 14.1 / 1638 Plt Count (150 - 450 K/mm3) 299 / 1638 MPV (7.0 - 9.6 fL) 9.60 08/ 1638 Neut % (Auto) (40 - 76 %) 62.0 / 1638 Lymph % (Auto) (20.5 - 51.1 %) 26.9 / 1638 Flathead % (Auto) (1.7 - 9.3 %) 7.6 / 1638 Eos % (Auto) (0.0 - 6.0 %) 1.9 / 1638 Baso % (Auto) (0.0 - 2.0 %) 1.0 / 1638 Neut # (Auto) (1.8 - 7.6 K/mm3) 6.4 / 1638 Lymph # (Auto) (0.6 - 3.0 K/mm3) 2.8 / 1638 Flathead # (Auto) (0.2 - 1.5 K/mm3) 0.8 / 1638 Eos # (Auto) (0.0 - 0.4 K/mm3) 0.2 / 1638 Baso # (Auto) (0.0 - 0.2 K/mm3) 0.1 / 1638 Abs Immat Gran (auto) (0.00 - 0.03 x10 3/uL) 0.06 H 06/16 1638 Add Manual Diff (CRITERIA DIFF/SCN) NO 06/16 1638 Immature Gran % (0.0 - 5.0 %) 0.6 08/06 1638 Nucleated RBC % (0.0 - 1.0 /100WBC%) 0.0 06/16 1638 ESR (0 - 15 mm/hr) 4 06/19 0807 Serology SARS-CoV-2 Ag (Rapid) (Negative) NEGATIVE 06/16 1635 Results: labs reviewed, current med profile rev'd Free Text PE Notes Free Text PE Notes: Physical examination Patient is a sleepy but wakes up on verbal stimuli then goes back to sleep HEENT pupils equal round reactive light and accommodating normocephalic/ atraumatic skull normal oral mucosa Neck supple no JVD Chest clear bilateral entry no wheeze or crackles CVS S1-S2 no murmur rubs or gallop Abdomen soft nontender bowel sounds positive Extremities no pedal edema pulses palpable Left lower extremity under or bandage with drain TAX COLLECTOR alert oriented x1-2 moving all 4 extremities no focal deficit identified Psych examination unable to obtain reliably Diagnosis, Assessment Plan Free Text A P: Status post left knee arthroplasty and removal of hardware Continue postoperative care as per surgery PT OT Pain control Incentive spirometry We will start the DVT prophylaxis pharmacological tomorrow provided there is no excessive bleeding and drain output is acceptable Follow-up with orthopedics Depression anxiety Continue with patient's home medication DVT prophylaxis with SCDs At this time patient will be full code Patient was explained the plan in detail all medication with side effects were discussed all questions answered he nodded his head but not sure if he understood completely. Also discussed the case with patient's surgeon. Consultants: orthopedics Quality: Gen [facility] Current Medications Current medication review: I attest that the foregoing medication list in the medical record is true, accurate, and complete to the best of my knowledge. at 1311 RPT #: [id number] END OF REPORT [facility] 2021-06-19 12:16:00 [id number] [facility] [id number] [place] [address] PATIENT NAME: RAN ENGLISH JR ADMIT DATE: 06/19/21 ACCOUNT NO: [id number] ROOM NO: [facility] AGE: 36 REPORT TYPE: OPERATIVE REPORT SEX: M ADMITTING PHYSICIAN: Shade Coffman MD ATTENDING PHYSICIAN: Shade Coffman MD OPERATION DATE: 06/19/2021 PREOPERATIVE DIAGNOSIS: The patient with end-stage osteoarthritis of the left knee, status post Hoffa type fracture. 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 PROCEDURES: 1. A right total knee arthroplasty using the Blanc and Nephew system with a femur, size 6 Journey II cruciate retaining Oxinium, size 5 tibia Journey nonporous tibial baseplate, a 35 mm oval Ernestine II 9 mm articular insert, Journey II cruciate retaining. The surfaces were cemented, nothing in the canal or the posterior condyle. 2. Removal of T-plate with 4 screws. We did that through the same incision in terms of the knee, but also a smaller portion of the medial incision to remove that. SURGEON: Shade Coffman MD AUXILIARY EQUIPMENT OPERATOR: Margaret from surgical assistance. ANESTHESIA: General. ESTIMATED BLOOD LOSS: Minimal. COMPLICATIONS: None. PROCEDURE IN DETAIL: The patient's left knee was sterilely prepped and draped in the usual manner. The patient had a standard anterior approach with a medial parapatellar incision. We did honey with a marking pen, so that we could get the patella to the same height postoperatively when we repaired it. We went ahead and released some of the osteophytes and on the approach, we went around medially and we ended up finding a place and actually identified all the screws. The problem was the T-portion of the T-plate was so far posteriorly that we had to do a kind of a separate incision, take out 2 screws from that. We took out the two from the wound and this we checked it with a C-arm to make sure that everything looked okay. Once we did that, we started with the total knee arthroplasty using the intramedullary femoral apolonia to kind of do the distal cut 5 degrees and then we did the tibial components just because it was a little tight. We took 11 mm off the lateral side, again lined it up on to the second PATIENT NAME: RAN ENGLISH toe. Once we did that, we did the 5-in-1 jig after measuring to a size 6. The tibia measured to a size 5 and then we ended up cutting the patella, which measured 26, initially took it down to a 15,very oblong one that we kind of had some portions that were still articular surface despite taking off a good 10 mm. The patient had at that point, the lugs were placed for the femur and the patella, but also the punch for the tibia, so that we could kind of keep everything alignment. We kind of trial reduced at that point and this gave us a good stability, full extension. We at that point, went ahead and did a Pulsavac with 3 liters and then cleaned it off and then went ahead and cemented the surfaces, starting with the tibia, followed by the femur and then the patella. We allowed this to dry, put the 9 mm insert into and then trialed reduction and it went into full extension and it gave good stability. The patient had copious amount of irrigation. We did not let the tourniquet down at that point, but we went ahead and I put a large Hemovac in and then repaired the retinaculum with #1 Vicryl, followed by 2-0 subcuticular and shakira in the skin. The separate medial incision had 2-0 Vicryl and then shakira in the skin. Each level of closure had copious amount of irrigation and strict hemostasis. The patient was extubated and taken to the recovery room in good condition. We did put him in a knee immobilizer. Dictated By: Shade Coffman MD WT: OP:CAMERON/HUMZA/RISHI Conf#: [id number]/DID#: [id number] Authenticated by Shade Coffman MD On 06/19/2021 05:48:47 PM at 8760 PATIENT NAME: RAN ENGLISH JR [facility] 2021-06-16 15:30:00 [id number] [address] PATIENT NAME: RAN ENGLISH JR ADMIT DATE: 06/19/21 ACCOUNT NO: [id number] ROOM NO: [facility] AGE: 36 REPORT TYPE: eELECTROCARDIOGRAM SEX: M ADMITTING PHYSICIAN: Blanco Jara MD ATTENDING PHYSICIAN: Blanco Jara MD Order: [id number] Test Reason : PRE-OP Test Date/Time Stamp: SatJun 16 2021 15:30:10 Blood Pressure : / mmHG Vent. Rate : 097 BPM Atrial Rate : 097 BPM P-R Int : 142 ms QRS Dur : 086 ms QT Int : 342 ms P-R-T Axes : 064 064 018 degrees QTc Int : 434 ms Normal sinus rhythm Normal ECG No previous ECGs available Confirmed by MD Vinh, Catracho ([id number]) on 06/26/2021 11:51:45 AM Referred By: Shade Coffman Confirmed by:Catracho Justice MD at 1151 PATIENT NAME: RAN ENGLISH JR [facility] 2020-02-29 06:55:00 [id number] [place] [address] PATIENT NAME: RAN ENGLISH JR ADMIT DATE: 02/11/20 ACCOUNT NO: [id number] ROOM NO: [facility] AGE: 35 REPORT TYPE: DISCHARGE SUMMARY SEX: M ADMITTING PHYSICIAN:Kristian Hawkins MD ATTENDING PHYSICIAN:Kristian Hawkins MD ADMISSION DATE: 02/11/2020 DISCHARGE DATE: 02/13/2020 FINAL DIAGNOSES: Left lower femur fracture, status post open reduction and internal fixation on 02/11/2020. MEDICATIONS AT DISCHARGE: Per JAN. DISPOSITION: To home. CONDITION ON DISCHARGE: Stable. DIET: Regular. ACTIVITY: As tolerated. CONSULTANTS: 1. Dr. Coffman. 2. Dr. Thornton. PROCEDURE: Open reduction and internal fixation of the medial condyle with 4-hole T-plate with three distal locking and one proximal locking and one regular screw. COMPLICATIONS: None. LEVEL OF CARE: Full code. REASON FOR ADMISSION: Left medial posterior Hoffa condyle fracture. FOLLOWUP: With Dr. Coffman in 1 week. COURSE OF HOSPITALIZATION: The patient is with a work-related injury with the left medial posterior Hoffa condyle fracture. He was admitted and underwent successful open reduction and internal fixation by Dr. Coffman and postoperative course was uneventful. Dr. Thornton from pain management was consulted. The patient is on Lovenox for deep venous thrombosis prophylaxis. No edema issues. The patient discharged home with home health. Dictated By: Kristian Hawkins MD WT: DS:ELSA/[email or web address]/NTS PATIENT NAME: RAN ENGLISH JR Conf#: [id number]/DID#: [id number] Authenticated and Edited by Kristian Hawkins MD On 02/29/20 4:59:35 PM at 1701 PATIENT NAME: RAN ENGLISH JR [facility] 2020-02-12 13:31:00 [id number] [facility] [address] [place] [address] PATIENT NAME: RAN ENGLISH JR ADMIT DATE: 02/11/20 ACCOUNT NO: [id number] ROOM NO: P.0728 AGE: 35 REPORT TYPE: CONSULTATION SEX: M ADMITTING PHYSICIAN:Kristian Hawkins MD ATTENDING PHYSICIAN:Kristian Hawkins MD CONSULTATION DATE: CONSULTING PHYSICIAN: Rufino Thornton DO PAIN MANAGEMENT CONSULTATION CHIEF COMPLAINT: Left lower extremity pain, left femur fracture. HISTORY OF PRESENT ILLNESS: A 35-year-old with no significant medical history of work-related injury. He has been having pain for the last month status post ORIF on 02/10. Currently, he is postop day #1. He is on IV morphine as well as hydrocodone using it pretty much around the clock. I spoke to the nurse. The plan may be discharged tomorrow. He states that he was taking Tylenol No. 3 and Ultram at home prior to this admission, but no other chronic history of pain other than in the lower leg. PAST MEDICAL HISTORY: No diabetes. No hypertension. No coronary artery disease. PAST SURGICAL HISTORY: None recent. ALLERGIES: NO KNOWN DRUG ALLERGIES. SOCIAL HISTORY: Does not currently use tobacco. Social alcohol use. PHYSICAL EXAMINATION: VITAL SIGNS: Blood pressure 164/89, respirations 17, heart rate 92, temperature 37 degrees. GENERAL: Awake, alert, in no acute distress. LUNGS: Normal respiratory rate and effort. ABDOMEN: Soft. EXTREMITIES: No clubbing, cyanosis, or edema. Lower extremity in a cast. ASSESSMENT: Left lower extremity pain, status post open reduction and internal fixation on 02/10 postop day #1. PLAN: I am going to increase the hydrocodone to 10/325 q.4 hours, minimize morphine and discontinue by later today. Discussed this with the nurse and the patient. Prescription for hydrocodone was left for anticipated discharge. Dictated By: Rufino Thornton DO WT: CON:ELAS/JOAN.Shawn/NTS PATIENT NAME: RAN ENGLISH JR Conf#: [id number]/DID#: [id number] Authenticated by Rufino Thornton DO On 03/21/2020 02:54:22 PM at 1454 PATIENT NAME: RAN ENGLISH JR [facility] 2020-02-11 11:50:00 [id number] [address] PATIENT NAME: RAN ENGLISH JR ADMIT DATE: 02/11/20 ACCOUNT NO: [id number] ROOM NO: [facility] AGE: 35 REPORT TYPE: OPERATIVE REPORT SEX: M ADMITTING PHYSICIAN:Kristian Hawkins MD ATTENDING PHYSICIAN:Kristian Hawkins MD OPERATION DATE: 02/11/2020 OPERATIVE REPORT DATE OF SURGERY: 02/11/2020. SURGEON: Shade Coffman MD. AUXILIARY EQUIPMENT OPERATOR: Simon Keller, operating room surgical technologist. PREOPERATIVE DIAGNOSIS: The patient with a left medial posterior Hoffa condyle fracture. POSTOPERATIVE DIAGNOSIS: The patient with left medial posterior Hoffa condyle fracture with the addition of much more segmental comminution than was appreciated with the CT scan. PROCEDURE PERFORMED: Open reduction and internal fixation of that medial condyle initially with three 4.0 cannulated screws, which did not work and we had to use a 4-hole T-plate with three distal locking and one proximal locking and one regular screw. ANESTHESIA: General. ESTIMATED BLOOD LOSS: 300 mL. COMPLICATIONS: None. PROCEDURE IN DETAIL: The patient's left leg was sterilely prepped and draped in the usual manner. A longitudinal incision was made just anterior to a scabbed area that on in entering essentially the scab was complete loss of skin and basically a large hematoma that we washed out. We pulsavaced with 3 liters. We did send cultures of it and then when looking at the posterior condyle, initially it was minimally displaced, but it was more than a centimeter displaced actually. I think what somewhat was surprising is the amount of segmental comminution in it. The three 4.0 screws that we initially had it fixed when we went to move the leg to check x-rays, it just kind of fell apart, so that is why we ended up going to a locked plate. We took a distal radius T-plate and kind of reversed the bend on it distally and put one regular screw in the shaft and then one locking and then three locking in that posterior condyle piece. This seemed to give us a better stability and there was not any motion when we moved the leg. C-arm was used throughout the case, both for the reduction as well as the placement of the hardware. We basically did copious PATIENT NAME: RAN ENGLISH amount of irrigation at the end. We ellipsed out the kind of the poor looking tissue and then we kind of did 2-0 Vicryl and shakira across that and then we did a vertical mattress on the skin with shakira in between. A sterile dressing was placed. We did talk much about the reduction. It was a little hard to do because of the segmental comminution, but we did use a Anne clamp as well as a kind of 2 Hohmanns to try to kind of almost joystick the piece back into the place. I was happy at the end, we had a direct visualization of the articular surface, there was a piece of bone that was missing from the medial side, but for the most part, I think it lined up fairly nicely. As I said sterile dressing was placed. The patient was put in a knee immobilizer, nonweightbearing, but was extubated and taken to the recovery room in good condition. Dictated By: Shade Coffman MD WT: OP:P.CONCETTA/HUMZA/RISHI Conf#: [id number]/DID#: [id number] Authenticated by Shade Coffman MD On 02/11/2020 09:47:22 PM at 1329 PATIENT NAME: RAN ENGLISH JR [facility] 2022-02-04 11:17:00 [id number] [place] [address] PATIENT NAME: RAN ENGLISH JR ADMIT DATE: ACCOUNT NO: [id number] ROOM NO: AGE: 34 REPORT TYPE: eELECTROCARDIOGRAM SEX: M ADMITTING PHYSICIAN: ATTENDING PHYSICIAN: Shade Coffman MD Order: [id number] Test Reason : SDS Test Date/Time Stamp: SatFeb 04 2020 11:17:15 Blood Pressure : / mmHG Vent. Rate : 069 BPM Atrial Rate : 069 BPM P-R Int : 152 ms QRS Dur : 094 ms QT Int : 404 ms P-R-T Axes : 016 045 028 degrees QTc Int : 432 ms Normal sinus rhythm Normal ECG No previous ECGs available Confirmed by ANA ROBERTSON, RAN Uriostegui ([id number]) on 02/05/2020 11:20:22 AM Referred By: Shade Coffman Confirmed by:RAN YIP MD at 1120 PATIENT NAME: RAN ENGLISH JR [facility]
[2024-12-31] MEDS ORDERED: ONDANSETRON 4 MG/2 ML VIAL ONE ×2 (13:07→15:13)
[2024-12-31] MEDS ORDERED: HYDROMORPHONE HCL 1 MG/ML INJ ONE (13:07)
[2024-12-31 13:10] LABS: Absolute Basophils 0.1 K/uL (0-0.5); Absolute Eosinophils 0.1 K/uL (0-0.5); Absolute Monocytes 0.4 K/uL (0.1-1.3); Basophils % 0.8 % (0-1.3); Eosinophils % 1.7 % (0-4.4); Hematocrit 50.9 % (39.6-49.0); Hemoglobin 17.6 g/dL (13.6-17.9); Lymphocytes % 30.7 % (15.3-44.8); MCH 31.2 pg (27.0-35.0); MCHC 34.6 g/dL (32.0-36.0); MCV 90.4 fL (80-100); Monocytes % 6.8 % (3.3-12.3); Nucleated Red Blood Cells % 0.1 % (0-0); Platelets 242 thou/uL (152-406); RBC Red Blood Cell Count 5.63 M/uL (4.33-5.43); Red Cell Distribution Width 13.7 % (12.1-15.2)
[2024-12-31 13:24] LABS: Albumin 3.9 g/dL (3.4-5.0); Anion Gap 6.9 mEq/L (5.0-15.0); Bilirubin Total 0.5 mg/dL (0.2-1.0); Globulin 3.9 g/dL (2.3-3.5); Potassium 3.9 mEq/L (3.5-5.1); Protein, Total 7.8 g/dL (6.4-8.2)
--- NOTE | 2024-12-31 13:34 | ER ---
Nurse's Notes [facility] Name: Donis Malloy Jr Age: 39 yrs Sex: Male : 1985 Arrival Date: 12/31/2024 Time: 11:34 Bed 16 Private MD: Diagnosis: Thrombosed hemorrhoid, rectal pain Presentation: 12/31 11:48 Chief complaint: Patient states: Hemorrhoids pain for 3 days. [facility] ll1 Coronavirus screen: Client denies travel out of the [place] in the last 14 days. At this time, the client does not indicate any symptoms associated with coronavirus-19. Ebola Screen: Patient denies travel to an Ebola-affected area in the 21 days before illness onset. Initial Sepsis Screen: Does the patient meet any 2 criteria? No. Patient's initial sepsis screen is negative. Does the patient have a suspected source of infection? No. Patient's initial sepsis screen is negative. Risk Assessment: Do you want to hurt yourself or someone else? Patient reports no desire to harm self or others. Onset of symptoms was December 29, 2024. 11:48 Method Of Arrival: Ambulatory 1 11:48 Acuity: SIMON 3 ll1 Triage Assessment: 11:50 General: Appears uncomfortable, Behavior is calm, cooperative, appropriate for age. ll1 Pain: Complains of pain in rectal Pain currently is 8 out of 10 on a pain scale. Quality of pain is described as aching, throbbing. GI: Reports rectal pain and hemorrhoids. Historical: - Allergies: 11:50 No Known Allergies; ll1 - PMHx: 11:50 Asthma; ADHD; Sleep apnea; ll1 - PSHx: 11:50 total knee; L ankle; hernia repair; ll1 - Immunization history:: Adult Immunizations up to date. - Infectious Disease History:: Denies. - Social history:: Smoking status: Patient reports the use of cigarette tobacco products, smokes .25 packs per day. Screenin:55 [facility] ED Fall Risk Assessment (Adult) History of falling in the last 3 months, db including since admission No falls in past 3 months (0 pts) Confusion or Disorientation No (0 pts) Intoxicated or Sedated No (0 pts) Impaired Gait No (0 pts) Mobility Assist Device Used No (0 pt) Altered Elimination No (0 pt) Score/Fall Risk Level 0 - 2 = Low Risk Oriented to surroundings, Maintained a safe environment. Abuse screen: Denies threats or abuse. Denies injuries from another. Nutritional screening: No deficits noted. Tuberculosis screening: No symptoms or risk factors identified. Assessment: 12:19 Reassessment: Patient appears in no apparent distress at this time. Patient and/or db family updated on plan of care and expected duration. Pain level reassessed. Patient is alert, oriented x 3, equal unlabored respirations, skin warm/dry/pink. General: Appears in no apparent distress. comfortable, Behavior is calm, cooperative. Neuro: Level of Consciousness is awake, alert, obeys commands, Oriented to person, place, time. Respiratory: Airway is patent Respiratory effort is even, unlabored, Respiratory pattern is regular, symmetrical. 13:54 Reassessment: Patient appears in no apparent distress at this time. Patient and/or db family updated on plan of care and expected duration. Pain level reassessed. Patient is alert, oriented x 3, equal unlabored respirations, skin warm/dry/pink. SURGEON AT PATIENT BEDSIDE SPEAKING WITH PATIENT. 14:15 Reassessment: Patient appears in no apparent distress at this time. Patient and/or db family updated on plan of care and expected duration. Pain level reassessed. Patient is alert, oriented x 3, equal unlabored respirations, skin warm/dry/pink. 14:22 Reassessment: PATIENT TO OR. db Vital Signs: 11:48 BP 153 / 119; Pulse 100; Resp 18; Temp 97.8; Pulse Ox 100% ; Weight 124.74 kg; Height 5 ll1 ft. 10 in. ; Pain 8/10; 13:15 BP 145 / 94; Pulse 90; Resp 18; Pulse Ox 98% on R/A; db 14:00 BP 150 / 87; Pulse 81; Resp 18; Pulse Ox 97% on R/A; db 11:48 Body Mass Index 39.46 (124.74 kg, 177.8 cm) ll1 11:48 Pain Scale: Adult ll1 ED Course: 11:40 Patient arrived in ED. al6 11:45 Mahamed Hidalgo MD is Attending Physician. sp3 11:50 Triage completed. ll1 11:55 Arm band placed on Patient placed in an exam room, on a stretcher. ll1 12:10 Dye, Elsy, RN is Primary Nurse. db 12:50 Inserted saline lock: 20 gauge in right antecubital area, using aseptic technique. td1 12:51 CBC with Diff Sent, CMP Sent. td1 13:34 Oleg Mcfadden MD is Hospitalizing Provider. sp3 13:55 Patient has correct armband on for positive identification. Side rails up X 1. Warm db blanket given. Pillow given. 14:14 EKG done. db 14:22 Provided Education on: OR, PREOP AND SURGERY. Pulse ox on. NIBP on. db 14:22 No provider procedures requiring assistance completed. Patient admitted, IV remains in db place. Administered Medications: 13:05 Drug: HYDROmorphone IVP 1 mg IVP once Route: IVP; Site: right antecubital; db 14:23 Follow up: Response: No adverse reaction; Pain is decreased db 13:05 Drug: Ondansetron IVP 4 mg IVP once; over 2 minutes Route: IVP; Site: right antecubital;db 14:23 Follow up: Response: No adverse reaction db Medication: 14:22 VIS not applicable for this client. db Outcome: 13:34 Decision to Hospitalize by Provider. sp3 14:22 Admitted to OR accompanied by nurse, via wheelchair, with chart, db 14:22 Condition: stable 14:22 Instructed on the need for admit, 14:23 Patient left the ED. db Signatures: Cynthia Low RN RN ll1 Mahamed Hidalgo MD MD sp3 Elsy Dye, BASIL RN db Veronica Torres6 Anand Bean td1 Corrections: (The following items were deleted from the chart) 11:51 11:48 Pulse 100bpm; Resp 18bpm; Pulse Ox 100%; Temp 97.8F; 124.74 kg; Height 5 ft. 10 ll1 in.; BMI: 39.4; Pain 8/10, Adult; ll1 12:59 12:59 CBC+H.LAB.BRZ drawn and sent. td1 td1 12:59 12:59 COMPREHENSIVE METABOLIC PANEL+C.LAB.BRZ drawn and sent. td1 td1
--- NOTE | 2024-12-31 13:34 | EDPHYS ---
Physician Documentation [facility] Name: Donis Malloy Jr Age: 39 yrs Sex: Male : 1985 Arrival Date: 12/31/2024 Time: 11:34 Bed 16 Private MD: ED Physician Mahamed Hidalgo HPI: 12/31 12:37 This 39 yrs old Male presents to ER via Ambulatory with complaints of Hemorrhoids. sp3 12:37 39-year-old male with history of asthma, ADHD who is a presents to the ED with sp3 chief complaint of rectal pain and hemorrhoids sent by [facility] for further evaluation. Patient states he has had the symptoms for "quite some time". He denies any bleeding, significant constipation, diarrhea, abdominal pain, or any other signs or symptoms on ROS at this time. He is not on any anticoagulants.. Historical: - Allergies: 11:50 No Known Allergies; ll1 - PMHx: 11:50 Asthma; ADHD; Sleep apnea; ll1 - PSHx: 11:50 total knee; L ankle; hernia repair; ll1 - Immunization history:: Adult Immunizations up to date. - Infectious Disease History:: Denies. - Social history:: Smoking status: Patient reports the use of cigarette tobacco products, smokes .25 packs per day. ROS: 12:38 Constitutional: Negative for fever, chills, and weight loss, Eyes: Negative for injury, sp3 pain, redness, and discharge, ENT: Negative for injury, pain, and discharge, Neck: Negative for injury, pain, and swelling, Cardiovascular: Negative for chest pain, palpitations, and edema, Respiratory: Negative for shortness of breath, cough, wheezing, and pleuritic chest pain, Abdomen/GI: Negative for abdominal pain, nausea, vomiting, diarrhea, and constipation, Back: Negative for injury and pain, MS/Extremity: Negative for injury and deformity, Skin: Negative for injury, rash, and discoloration, Neuro: Negative for headache, weakness, numbness, tingling, and seizure, Psych: Negative for depression, anxiety, suicide ideation, homicidal ideation, and hallucinations, Allergy/Immunology: Negative for hives, rash, and allergies, Endocrine: Negative for neck swelling, polydipsia, polyuria, polyphagia, and marked weight changes, 12:38 All other systems are negative, Exam: 12:38 Constitutional: This is a well developed, well nourished patient who is awake, alert, sp3 and in no acute distress. Head/Face: Normocephalic, atraumatic. Eyes: Pupils equal round and reactive to light, extra-ocular motions intact. Lids and lashes normal. Conjunctiva and sclera are non-icteric and not injected. Cornea within normal limits. Periorbital areas with no swelling, redness, or edema. Neck: Trachea midline, no thyromegaly or masses palpated, and no cervical lymphadenopathy. Supple, full range of motion without nuchal rigidity, or vertebral point tenderness. No Meningismus. Chest/axilla: Normal chest wall appearance and motion. Nontender with no deformity. No lesions are appreciated. Cardiovascular: Regular rate and rhythm with a normal S1 and S2. No gallops, murmurs, or rubs. Normal PMI, no JVD. No pulse deficits. Respiratory: Lungs have equal breath sounds bilaterally, clear to auscultation and percussion. No rales, rhonchi or wheezes noted. No increased work of breathing, no retractions or nasal flaring. Abdomen/GI: Soft, non-tender, with normal bowel sounds. No distension or tympany. No guarding or rebound. No evidence of tenderness throughout. Back: No spinal tenderness. No costovertebral tenderness. Full range of motion. Skin: Warm, dry with normal turgor. Normal color with no rashes, no lesions, and no evidence of cellulitis. MS/ Extremity: Pulses equal, no cyanosis. Neurovascular intact. Full, normal range of motion. Neuro: Awake and alert, GCS 15, oriented to person, place, time, and situation. Cranial nerves II-XII grossly intact. Motor strength 5/5 in all extremities. Sensory grossly intact. Cerebellar exam normal. Normal gait. Psych: Awake, alert, with orientation to person, place and time. Behavior, mood, and affect are within normal limits. 12:38 : Patient with multiple hemorrhoids including 1 large 1 at approximately 3 cm. None are thrombosed and there is no bleeding., Vital Signs: 11:48 BP 153 / 119; Pulse 100; Resp 18; Temp 97.8; Pulse Ox 100% ; Weight 124.74 kg; Height 5 ll1 ft. 10 in. ; Pain 8/10; 13:15 BP 145 / 94; Pulse 90; Resp 18; Pulse Ox 98% on R/A; db 14:00 BP 150 / 87; Pulse 81; Resp 18; Pulse Ox 97% on R/A; db 11:48 Body Mass Index 39.46 (124.74 kg, 177.8 cm) ll1 11:48 Pain Scale: Adult ll1 MDM: 11:45 Medical Screening Exam initiated sp3 12:39 Data reviewed: vital signs, nurses notes, lab test result(s). ED course: 39-year-old sp3 male with nonthrombosed hemorrhoids and rectal pain. I am not highly suspicious of perirectal abscess or other pathology. Plan will be to administer pain control and obtain general labs. Have discussed the case with Dr. Mcfadden with general surgeon on-call who will be evaluating patient in the ED with disposition planning following.. 13:33 ED course: Dr. Mcfadden to take patient to the OR for hemorrhoidectomy due to thrombosed sp3 portion of hemorrhoid internally.. 12/31 12:26 Order name: CBC with Diff; Complete Time: 13:31 sp3 12/31 12:26 Order name: CMP; Complete Time: 13:31 sp3 12/31 13:33 Order name: EKG; Complete Time: 13:33 sp3 12/31 12:26 Order name: IV Saline Lock; Complete Time: 12:59 sp3 12/31 12:26 Order name: Labs collected and sent; Complete Time: 12:59 sp3 12/31 13:33 Order name: EKG - Nurse/Tech; Complete Time: 14:14 sp3 12/31 13:33 Order name: NPO; Complete Time: 13:54 sp3 Administered Medications: 13:05 Drug: HYDROmorphone IVP 1 mg IVP once Route: IVP; Site: right antecubital; db 14:23 Follow up: Response: No adverse reaction; Pain is decreased db 13:05 Drug: Ondansetron IVP 4 mg IVP once; over 2 minutes Route: IVP; Site: right antecubital;db 14:23 Follow up: Response: No adverse reaction db Disposition Summary: 12/31/24 13:34 Hospitalization Ordered Notes: Hospitalization Status: Observation sp3 Provider: Lesa, Oleg sp3 Location: Operating Room sp3 Condition: Stable sp3 Problem: new sp3 Symptoms: have worsened sp3 Bed/Room Type: Standard sp3 Room Assignment: sp3 Diagnosis - Thrombosed hemorrhoid, rectal pain sp3 Forms: - Medication Reconciliation Form sp3 - SBAR form sp3 - Leadership Thank You Letter sp3 Signatures: Dispatcher [employer] EDCynthia Orellana RN RN ll1 Mahamed Hidalgo MD MD sp3 Elsy Dye RN RN db
[2024-12-31] MEDS: NA CHLORIDE 0.9% 1,000 ML ONE (14:30)
[2024-12-31] MEDS ORDERED: dexAMETHasone 10 MG/ML VIAL ONE (15:13)
[2024-12-31] MEDS ORDERED: propofoL 200 MG/20 ML VIAL IV ONE (15:13)
[2024-12-31] MEDS ORDERED: LIDOCAINE 2% MPF 5 ML VIAL ONE (15:13)
[2024-12-31] MEDS ORDERED: KETOROLAC 30 MG/ML INJ ONE (15:13)
[2024-12-31] MEDS ORDERED: FENTANYL CITR 100 MCG/2 ML ONE (15:13)
[2024-12-31] MEDS ORDERED: MIDAZOLAM HCL 2 MG/2 ML INJ ONE (15:13)
[2024-12-31] MEDS: CEFOXITIN SODIUM 1 GM/VIAL ONE (15:30)
[2024-12-31] MEDS ORDERED: KETAMINE HCL IN 0.9 % NACL 50 MG/5 ML SYRINGE IV ONE (15:45)
--- NOTE | 2024-12-31 16:09 | P.OP ---
Date of Service: 12/31/24 Preop diagnosis: Thrombosed hemorrhoid Postop diagnosis: Samecomplex Procedure performed: Examiner anesthesia, rigid proctoscopy and left lateral hemorrhoidectomy complex in nature Surgeon: Oleg Mcfadden MD Crumb Packer: None Estimated blood loss: Minimal Specimen: Thrombosed hemorrhoids Findings: As above Anesthesia: General Complications: None Drains: None Fluids and blood products: Nonapplicable Disposition: Recovery room Operative note: Patient brought to the OR and placed in supine position. General anesthesia began. Patient placed in the lithotomy position. Patient prepped and draped in usual sterile fashion. Examiner anesthesia revealed a large left complex external and internal hemorrhoid with thrombosis. Rigid proctoscopy did not reveal any other evidence of disease. Patient did have hemorrhoids in the remainder of his anus but were not thrombosed. Most of those hemorrhoids were external. Marcaine 0.5% infiltrated for postop pain control. Harmonic scalpel used to excise the complex, prolapsed thrombosed hemorrhoid. Bleeding controlled with cautery. Specimen sent to pathology. Surgicel and sterile dressing applied. Patient awakened. Patient taken to recovery room in good general condition. CC:
[2024-12-31] MEDS: HYDROCODONE/APAP 7.5/325 MG TAB PO PRN (17:32)
[2024-12-31] MEDS: HYDROCODONE/APAP 7.5/325 MG TAB ONE (17:32)
--- NOTE | 2024-12-31 17:56 | PREOPCON ---
Date of Consultation: 12/31/2024 Reason: Rectal pain. History Of Present Illness: The patient is a 39-year-old gentleman who presents to the emergency donal with 3-day history of increasing rectal pain associated with thrombosed prolapsed hemorrhoid. The patient has tried Preparation H, ice, hot water without any relief. The patient has a history of con stipation and has not had a colonoscopy. There is no history of bleeding. There is no sore throat, runny nose, cough, headaches, or dizziness. No chest pain. No fever or chills. Review of Systems: Otherwise unremarkable. Past Medical History: Significant for asthma, ADHD, sleep apnea hypertension. Past Surgical History: Left total knee replacement, left ankle surgery, hernia repair. Allergies: NONE. Social History: The patient does smoke and drink alcohol occasionally. He has been counseled. Family History: Significant for Alzheimer disease. Physical Examination: Vital Signs: Stable. His blood pressure and pulse rate are up a little bit probably secondary to pa in. He is afebrile. General: He is awake, alert, oriented x3. Head and Neck: No masses. Chest: Clear. Heart: S1, S2. Abdomen: Soft. Extremities: Neurovascularly intact. Neuro: Nonfocal. Rectal: Reveals a large thrombosed external hemorrhoid, may have an internal component, it is hard t o tell. It is too painful to do a rectal exam on this patient. There is area of ecchymoses consiste nt with hemorrhoid, thrombosed in nature. Diagnostic. Laboratory Data: Reviewed. White count is normal. There is no left shift. H and H are 17.6 and 50 .9. Electrolytes reviewed, essentially unremarkable. Assessment: A 39-year-old gentleman with thrombosed hemorrhoid and severe rectal pain. Recommendations: We will proceed with exam under anesthesia, rigid proctoscopy, and hemorrhoidectomy . The patient understands risks, benefits, and alternatives, agrees to procedure. The patient will be discharged to home after surgery and discharge instructions given as well. /MODL Voice ID: [id number] Report ID: [id number]
[2025-01-01 15:56] VITALS: TEMP 97.8
[2025-01-01 15:59] VITALS: BP 150/87; O2SAT 97
== END 2024-12-31 18:00 | disposition home or self-care (01) ==
LOC: ER 11:34 → DS 17:07
PROVIDERS: ATTEND Surgery
PROC: 06BY0ZC Excision of Hemorrhoidal Plexus, Open Approach (ICD-10-PCS; 2024-12-31)
PROC: 0DJD8ZZ Inspection of Lower Intestinal Tract, Via Natural or Artificial Opening Endoscopic (ICD-10-PCS; principal; 2024-12-31 17:45)
DX: K64.5 Perianal venous thrombosis (principal)
CPT/HCPCS: 36415; 80053; 85025; 88304; 93005; J0694; J1100; J1171; J2003; J2250; J2405; J2704; J3010; J7030